=== PATIENT | male | born 1975 | race Caucasian/White ===

== ENCOUNTER → 2017-12-14 | Outpatient (CLI) | payer OTHER | LOC: BMCIMAGING 09:20 | PROVIDERS: ATTEND Internal Medicine | DX: M77.31 Calcaneal spur, right foot (principal); M77.32 Calcaneal spur, left foot ==

== ENCOUNTER 2018-10-20 16:59 | Emergency (ER) | payer OTHER ==
--- NOTE | 2018-10-20 17:36 | EDPHY ---
H & P Time Seen by Provider: 10/20/18 17:35 HPI/ROS: Chief complaint. Low back pain HPI. 43-year-old male presents emergency department with low back pain that began yesterday. He denies trauma or fall or unusual activity. He is quite comfortable when he is lying down but has low back spasms with standing and trying to straighten up. It is all the way across his lower back. He has no radiation to his legs. No leg weakness. No bowel or bladder symptoms. He has had previous low back pain. Patient took some Aleve early this morning. No fever. No back surgery. Denies chest pain, shortness of breath, abdominal pain ROS 10 systems were reviewed and negative with the exception of the elements mentioned in the history of present illness Past Medical/Surgical History: Occasional low back pain Social History: Single, nonsmoker, no alcohol Smoking Status: Never smoked Physical Exam: General Appearance: A male moderate distress vitals significant for elevated blood pressure initially at 174/124 Eyes: Pupils equal and round no pallor or injection. ENT, Mouth: Mucous membranes are moist. Respiratory: There are no retractions, lungs are clear to auscultation. Cardiovascular: Regular rate and rhythm. Gastrointestinal: Abdomen is soft and nontender, no masses, bowel sounds normal. Neurological: Awake and alert, sensory and motor exams grossly normal. Deep tendon reflexes are symmetrical. Straight leg raising negative at 30 degrees bilaterally. Great toe strength is normal. Sensation is normal. No saddle anesthesia Skin: Warm and dry, no rashes. Musculoskeletal: Diffuse tenderness across the lumbar spine. No focal tenderness over the lumbar spine. Extremities symmetrical, full range of motion. Psychiatric: Patient is oriented X 3, there is no agitation. Constitutional: Initial Vital Signs Temperature (C) 36.8 C 10/20/18 17:13 Heart Rate 88 10/20/18 17:13 Respiratory Rate 18 10/20/18 17:13 Blood Pressure 174/124 H 10/20/18 17:13 O2 Sat (%) 95 10/20/18 17:13 O2 Delivery Mode Room Air Allergies/Adverse Reactions: amoxicillin Allergy (Verified 10/20/18 17:12) Penicillins Allergy (Verified 10/20/18 17:12) Home Medications: Medication Instructions Recorded Aleve 10/20/18 Cyclobenzaprine [Flexeril 10 MG 10 mg PO TID PRN #15 tab 10/20/18 (*)] Lidocain/Me-Salicyl/Caps/Menth 1 each TP DAILY #10 adh..patch 10/20/18 [Medi-Patch with Lidocaine] oxyCODONE/APAP 5/325 [Percocet 1 tab PO Q4-6PRN PRN #14 tab 10/20/18 5/325] Medical Decision Making Procedures: IV normal saline. Oral Valium, IV Toradol and morphine. Lidocaine patch ED Course/Re-evaluation: Re-evaluation at 6:45 p.m. Patient is feeling better. We will ambulate him and see how he does. Re-evaluation again 745. Patient is ambulatory in the emergency department and feeling much better. Patient and I discussed treatment plan including criteria for return importance of follow-up and further evaluation. He expresses understanding and agreement Differential Diagnosis: This appears to be muscular low back pain. He has no radiculopathy, weakness, bowel or bladder symptoms. I did consider HNP and cauda equina syndrome. - Data Points Medications Given: Discontinued Medications Diazepam (Valium) 5 mg PO EDNOW ONE Stop: 10/20/18 18:02 Last Admin: 10/20/18 18:20 Dose: 5 mg Sodium Chloride (Ns) 1,000 mls @ 0 mls/hr IV EDNOW ONE; Wide Open PRN Reason: Protocol Stop: 10/20/18 18:02 Last Admin: 10/20/18 18:22 Dose: 1,000 mls Ketorolac Tromethamine (Toradol) 30 mg IVP EDNOW ONE Stop: 10/20/18 18:02 Last Admin: 10/20/18 18:19 Dose: 30 mg Miscellaneous Medication (Icy Hot Lidocaine/Menthol 4%/1% Patch) 1 patch TD EDNOW ONE Stop: 10/20/18 18:02 Last Admin: 10/20/18 18:23 Dose: 1 patch Morphine Sulfate (Morphine) 6 mg IVP EDNOW ONE Stop: 10/20/18 18:02 Last Admin: 10/20/18 18:22 Dose: 6 mg Departure - Departure Disposition: Home, Routine, Self-Care Clinical Impression: Low back pain Qualifiers: Chronicity: acute Back pain laterality: bilateral Sciatica presence: without sciatica Qualified Code(s): M54.5 - Low back pain Condition: Good Instructions: Low Back Strain (ED) Additional Instructions: Change and apply new lidocaine patch to her back tomorrow Aleve or ibuprofen as anti-inflammatory. Ibuprofen dose is 800 mg every 6 hr Percocet as needed for pain. 1 pill every 4-6 hours as needed for pain Flexeril as muscle relaxer. 1 pill every 8 hr to help with muscle relaxation Return for leg weakness, bowel or bladder symptoms, worsening pain Recheck in 2 days if not improved Referrals: NONE *PRIMARY CARE P,. [Primary Care Provider] - As per Instructions Dary Boyd MD [[facility] [place] Primary Care Provider] - 2-3 days, if not improved Prescriptions: Cyclobenzaprine [Flexeril 10 MG (*)] 10 mg PO TID PRN #15 tab PRN Reason: Spasms Lidocain/Me-Salicyl/Caps/Menth [Medi-Patch with Lidocaine] 1 each TP DAILY #10 adh..patch oxyCODONE/APAP 5/325 [Percocet 5/325] 1 tab PO Q4-6PRN PRN #14 tab PRN Reason: Pain, Moderate
[2018-10-20] MEDS ORDERED: KETOROLAC 30 MG/1 ML SDV IVP ONE (18:01)
[2018-10-20] MEDS ORDERED: NS 1,000 ML IV ONE (18:01)
[2018-10-20] MEDS ORDERED: LIDOCAINE 4%/MENTHOL 1% PATCH TD ONE (18:01)
[2018-10-20] MEDS ORDERED: DIAZEPAM 5 MG TAB PO ONE (18:01)
[2018-10-20] MEDS ORDERED: OXYCODONE/APAP 5/325MG PREPACK#4 BTL TAKEHOME ONE (19:54)
[2018-10-20] MEDS ORDERED: CYCLOBENZAPRINE 10MG PREPACK#3 BTL TAKEHOME ONE (19:54)
[2018-10-20 20:24] VITALS: BP 112/89
[2018-10-20] MEDS ORDERED: PATCH REMOVAL 1 EA PATCH TD SCH (21:00)
== END 2018-10-20 20:26 | disposition home or self-care (01) ==
DX: M54.41 Lumbago with sciatica, right side (principal); M54.42 Lumbago with sciatica, left side; E86.9 Volume depletion, unspecified
CPT/HCPCS: 96374; J1885; J2270